=== PATIENT | male | born 1945 | race Caucasian/White ===

== ENCOUNTER 2025-05-16 12:52 | Outpatient (CLI) | payer OTHER, SELFPAY ==
[2025-05-16 13:10] VITALS: BP 157/78; PULSE 63; RESP 16; O2SAT 97
[2025-05-16 13:31] LABS: Hematocrit 38.6 % (41-53); Hemoglobin 13.8 g/dL (13.5-17.5); Mean Corpuscular HGB Conc 35.9 % (30-36); Mean Corpuscular Hemoglobin 33.0 PG (26-34); Mean Corpuscular Volume 91.9 fL (80-100); Platelet Count 204 X10^3/uL (150-400)
[2025-05-16 13:37] LABS: INR 1.0 (0.9-1.3); Prothrombin Time 11.0 SECONDS (9.4-12.5)
--- NOTE | 2025-05-16 15:02 | PC.NURSE ---
Procedure was cancelled as no access was gained today. Pt A and O x3, denied pain and was able to ambulate independently to the front entrance.
== END 2025-05-16 15:05 | disposition home or self-care (01) ==
LOC: RAD 12:53
PROVIDERS: Family Medicine; PCP Internal Medicine; Referring Provider Orthopaedic Surgery; Visit Provider Orthopaedic Surgery
DX: M54.12 Radiculopathy, cervical region (principal); M75.42 Impingement syndrome of left shoulder
CPT/HCPCS: 82962; 85027; 85610